=== PATIENT | male | born 1960 | race Caucasian/White ===

== ENCOUNTER → 2016-11-22 | Day surgery (SDC) | payer BC ==
[~2016-11-22] MED LIST: ADVICOR; HYDROCODON-ACE1 EAC5 PO; HYDROCODONE-APA1 T49 PO; MEVACOR PO; NABUMETONE500 M1 PO; TOPROL XL PO; TRAZODONE PO; VOLTAREN50 MG PO; ZANAFLEX PO
--- NOTE | ~2016-11-22 | OR ---
Unit #: [id number]: [id number] Patient: YEVGENIY FISHER [id number] [address] [place], [place] [address] [id number] MR#: [id number] NAME: YEVGENIY FISHER ROOM: Date of Procedure: 11/22/2016 Admission Date: 11/22/2016 Surgeon: Ben Sanchez M.D. : 1960 Attending Physician: Ben Sanchez M.D. Primary Care Physician: Glynn Younger M.D. OPERATIVE REPORT REVISED REPORT PREOPERATIVE DIAGNOSES Back pain, degenerative facet disease. POSTOPERATIVE DIAGNOSES Back pain, degenerative facet disease. PROCEDURE PERFORMED Lumbar facet injection x3 levels with diagnostic and therapeutic reasons with intravenous sedation and fluoroscopic guidance for needle localization. INDICATIONS FOR PROCEDURE The patient is a 56-year-old male with back pain does not respond to extensive rehabilitative treatment and medical management. Workup and symptom complex consistent with the facet etiology for this complaint. Plan is for trial of diagnostic and therapeutic facet injections at the right L3-L4, L4-L5, and L5-S1 levels. DESCRIPTION OF PROCEDURE The patient was placed in a prone position. Standard monitors were applied. 2 mg of Versed were given for sedation and anxiolysis, which were adequate. Vital signs remained stable. Sterile prep and drape then of the lumbar area was performed. The skin overlying the L3-L4, L4-L5, and L5-S1 facets localized with 1% lidocaine. The fluoroscopy was then used to guide needle tip positioning within the edge of the facets of these respective levels. After this was confirmed with fluoroscopic guidance, dose of 1 mL of a mixture of 80 mg of Depo-Medrol and 2 mL of 0.25% bupivacaine were injected at each of these levels. The patient tolerated the procedure otherwise well and was discharged to the recovery room in stable condition. *NOTE REMOVED. Dictated by... Veena Castelan/jakil TD: 11/22/2016 23:08 Unit #: [id number] #: [id number] Patient: YEVGENIY FISHER JOB #: [id number] OPERATIVE REPORT Page 1 of 1 X Ben Sanchez MD X PROCEDURE OPERATIVE NOTE
== END | disposition home or self-care (01) ==
LOC: CCSC 07:56
DX: M47.896 Other spondylosis, lumbar region (principal); M51.36 Other intervertebral disc degeneration, lumbar region; I10 Essential (primary) hypertension
CPT/HCPCS: J1040; J2250